=== PATIENT | male | born 1970 | race Two or more races ===

== ENCOUNTER 2017-06-29 17:44 | Emergency (ER) | payer SELFPAY ==
[~2017-06-29] VITALS: Ht 154.9 cm; Wt 54.4 kg
[2017-06-29] MEDS ORDERED: HYDROcodone/Acetamin 7.5/325 tab ORAL ONE (18:15)
--- NOTE | 2017-06-29 18:30 | Emergency Room Report ---
History of Present Illness General Chief Complaint: Lower Extremity Injury Source: Patient Present Illness HPI 46-year-old male presents to the emergency department complaining of localized pain, swelling and tenderness that is 8 out of 10 in severity to the lateral right ankle times one hour. [place]. Patient denies hitting his head, loss of consciousness, neck or back pain. Patient reports pain does not radiate he states it is exacerbated upon movement of the right foot, walking or bearing weight. Patient states he has not taken medication for his symptoms. Patient denies significant past medical history. Denies numbness tingling or loss of sensation or gross motor movements of the extremities, incontinence of bowel or bladder. Denies CP, Palpitations, LOC, AMS, dizziness, Changes in Vision, Sensation, paresthesias, or a sudden severe headache. Allergies: Coded Allergies: No Known Allergies (Unverified , 06/29/17) Patient History Past Medical History: see triage record Past Surgical History: none Pertinent Family History: none Reviewed Nursing Documentation: PMH: Agreed, PSxH: Agreed Nursing Documentation-PMH Past Medical History: No Stated History Review of Systems All Other Systems: negative except mentioned in HPI Physical Exam Vital Signs Date Time Temp Pulse Resp B/P (MAP) Pulse Ox O2 Delivery O2 Flow Rate FiO2 06/29/17 17:55 98.0 70 18 126/78 96 Room Air 98.1 Sp02 EP Interpretation: reviewed, normal General Appearance: no apparent distress, alert, GCS 15, non-toxic Head: normocephalic, atraumatic ENT: hearing grossly normal, normal voice Neck: full range of motion, no bony tend Respiratory: lungs clear, normal breath sounds, speaking full sentences Cardiovascular #1: regular rate, rhythm, no edema, normal capillary refill Musculoskeletal: back normal, gait/station normal, normal range of motion, swelling - lateral right ankle, other - no increased laxity of the right ankle, tender - lateral right ankle Neurologic: alert, oriented x3, responsive, motor strength/tone normal, sensory intact, speech normal, grossly normal Psychiatric: judgement/insight normal Skin: normal color, no rash, warm/dry, well hydrated, other - mild bruising noted to the dorasl right ankle. Medical Decision Making PA Attestation Dr. Garcia is my supervising Physician whom patient management has been discussed with. Diagnostic Impression: Primary Impression: Right ankle sprain Qualified Codes: S93.401A - Sprain of unspecified ligament of right ankle, initial encounter ER Course 46-year-old male presents to the emergency department complaining of localized pain, swelling and tenderness that is 8 out of 10 in severity to the lateral right ankle times one hour. [place]. Patient denies hitting his head, loss of consciousness, neck or back pain. Patient reports pain does not radiate he states it is exacerbated upon movement of the right foot, walking or bearing weight. Patient states he has not taken medication for his symptoms. Patient denies significant past medical history. Denies numbness tingling or loss of sensation or gross motor movements of the extremities, incontinence of bowel or bladder. Denies CP, Palpitations, LOC, AMS, dizziness, Changes in Vision, Sensation, paresthesias, or a sudden severe headache. Ddx considered but are not limited to Fracture, dislocation, contusion, Sprain/ Strain/Spasm. Vital signs: are WNL, pt. is afebrile H&PE are most consistent with musculoskeletal injury will perform imaging to r/ o fractures/dislocations. ORDERS: - X-ray Right ankle - negative for fx, Dislocation, or significant soft tissue injury, per preliminary read in ED, and signed by SHANIQUA Fernández, my supervising physician has reviewed, and agrees with my interpretation. ED INTERVENTIONS: - [place] PO - Air Splint applied to the right ankle by sorter/assay tech. Pt. remains neurovascularly intact. --Patient is provided with crutches and instructed on their use DISCHARGE: At this time pt. is stable for d/c to home. Will provide printed patient care instructions, and any necessary prescriptions. Care plan and follow up instructions have been discussed with the patient prior to discharge. Other X-Ray Diagnostic Results Other X-Ray Diagnostic Results : X-Ray ordered: Right Ankle # of Views/Limited Vs Complete: 3 View Indication: Pain EP Interpretation: Yes SHANIQUA Xray: Interpretation reviewed, by supervising MD, and agrees with findings. Interpretation: no dislocation, no soft tissue swelling, no fractures Impression: No acute disease Electronically Signed by: Vijaya Fernández PA-C Last Vital Signs Date Time Temp Pulse Resp B/P (MAP) Pulse Ox O2 Delivery O2 Flow Rate FiO2 06/29/17 17:55 98.0 70 18 126/78 96 Room Air 98.1 Disposition: HOME, SELF-CARE Condition: Stable Scripts Ibuprofen* (MOTRIN*) 600 Mg Tablet 600 MG ORAL THREE TIMES A DAY, #30 TAB 0 Refills Prov: Vijaya Fernández 06/29/17 Referrals: NOT CHOSEN IPA/MD,REFERRING (PCP) Patient Instructions: Ankle Sprain Additional Instructions: Take medications as directed. Follow up with a Primary Care Provider in 3-5 days, even if your symptoms have resolved. --Please review list of primary care clinics, if you do not already have a primary care provider Return sooner to ED if new symptoms occur, or current symptoms become worse. - Please note that this Emergency Department Report was dictated using [employer] air operator technology software, occasionally this can lead to erroneous entry secondary to interpretation by the dictation equipment. Vijaya Fernández Jun 29, 2017 18:30
[2017-06-29] MEDS ORDERED: IBUPROFEN600 MG ORAL (19:20)
[2017-06-29 19:40] VITALS: BP 120/74
[2017-06-29 19:50] VITALS: BP 120/74
--- NOTE | 2017-06-30 10:32 | Diagnostic Imaging Report ---
Indication: Pain right ankle ankle pain/trauma Comparison: None Findings: 3 views of the right ankle obtained. There is lateral soft tissue swelling present. No acute fracture is appreciated and there is no malalignment definitely identified. IMPRESSION: No definite fracture identified.
== END 2017-06-29 19:50 | disposition home or self-care (01) ==
LOC: EMR 18:14
DX: S93.401A Sprain of unspecified ligament of right ankle, initial encounter (principal); X50.1XXA Overexertion from prolonged static or awkward postures, initial encounter; Y92.512 Supermarket, store or market as the place of occurrence of the external cause
CPT/HCPCS: 99283